=== PATIENT | male | born 1980 | race Caucasian/White ===

== ENCOUNTER → 2018-07-10 | Outpatient (CLI) | payer OTHER ==
[2018-07-10 10:25] LABS: PLATELET COUNT, AUTOMATED 272 K/uL (150-450)
--- NOTE | 2018-07-10 18:20 | EKG ---
[place]AC[place] [facility] [place]IENT NAME: NAZIA VERMA : [id number] MR: [id number] V: [id number] EXAM DATE: ORDERING PHYSICIAN: BHARAT MORELAND TECHNOLOGIST: RIGOBERTO Test Reason : R42 Blood Pressure : / mmHG Vent. Rate : 074 BPM Atrial Rate : 074 BPM P-R Int : 134 ms QRS Dur : 100 ms QT Int : 414 ms P-R-T Axes : 063 073 067 degrees QTc Int : 459 ms Normal sinus rhythm Normal ECG No previous ECGs available Confirmed by BEENA STONE ([id number]) on 07/10/2018 6:40:58 PM Referred By: THEA WASHINGTON Confirmed By:BEENA STONE
== END ==
LOC: LAB 09:36
PROVIDERS: ATTEND Nurse Practitioner Primary Care
DX: R42 Dizziness and giddiness (principal)
CPT/HCPCS: 36415; 82040; 82247; 82310; 82374; 82435; 82565; 82947; 84075; 84132; 84155; 84295; 84443; 84450; 84460; 84520; 85025

== ENCOUNTER → 2018-07-30 | Outpatient (CLI) | payer OTHER | LOC: US 01:44 | PROVIDERS: ATTEND Nurse Practitioner Primary Care | DX: R42 Dizziness and giddiness (principal) | CPT/HCPCS: 93306 ==

== ENCOUNTER → 2018-11-02 | Outpatient (CLI) | payer OTHER ==
[~2018-11-02] MED LIST: ATEN-65 PO; GADOBENATE 529MG/1ML 15ML VIAL IVP ONE
--- NOTE | 2018-11-02 15:56 | RADIOLOGY IMAGING REPORT ---
FACILITY: [facility] - [place] PATIENT NAME: Kane Mesa : 1980 MR: [id number] V: [id number] EXAM DATE: ORDERING PHYSICIAN: BHARAT MORELAND TECHNOLOGIST: Location: [facility] - [place] Patient: Kane Mesa : 1980 Visit/Account:[id number] Date of Sevice: 11/02/2018 BRAIN MR W W/O CONTRAST Dizziness ADDITIONAL PERTINENT HISTORY: None. COMPARISON STUDIES: None. TECHNIQUE: Multi-planar, multi-sequence brain MRI was performed with and without IV contrast adminis tration. Contrast: 15 mL MultiHance FINDINGS: Ventricles / sulci / fissures: Negative. Masses / hemorrhage / midline shift: Negative. White matter: Negative. Lux-white differentiation: Normal. Extra-axial fluid collections: Negative. Intracranial vasculature and dural sinuses: Negative. Skull base / calvarium: Negative. Visualized mastoid air cells / paranasal sinuses: Well aerated. Orbits: Negative. Upper neck:Negative. IMPRESSION: Unremarkable MR the brain with and without contrast Report Dictated By: Marie Zaman MD at 11/02/2018 3:30 PM Report E-Signed By: Marie Zaman MD at 11/02/2018 3:52 PM WSN:[id number]
== END ==
LOC: MRI 03:29
PROVIDERS: ATTEND Nurse Practitioner Primary Care
DX: R42 Dizziness and giddiness (principal)
CPT/HCPCS: 70553; A9577